=== PATIENT | female | born 1980 | race African-American/Black ===

== ENCOUNTER → 2016-11-04 | Outpatient (CLI) | payer OTHER ==
[~2016-11-04] MED LIST: AUGMENTIN PO; CEPHALEXIN500 M1 PO; CIPRO PO; MOTRIN400 MG PO; NO MEDICATIONS; PYRIDIUM PO; VICODIN 5/1 TAB 5/50 PO; VICODIN 5/500 T1 TAB PO
--- NOTE | ~2016-11-04 | MY6 ---
[facility] A Service of [facility] & [facility] RADIOLOGY TEXT RESULTS PATIENT: MADDY RODRIGUEZ LOCATION: [facility] : 78 UNIT #: [id number] AGE: [address]: Lotus Cloud MD SEX: F ORDER DR: [id number] [facility] [address] [place], [place] [address] [id number] O MR#: [id number] Acc #: [id number] NAME: MADDY RODRIGUEZ : 1980 SEX: F STUDY DATE/TIME: 11/04/2016 8:51 UNIT: [facility] ROOM: STUDY DESCRIPTION: MY Mammogram Dx Dig [place] Attending Physician: Lotus Cloud M.D. Referring Physician: Lotus Cloud M.D. Ordering Physician: Lotus Cloud M.D. Primary Care Physician: Lotus Cloud M.D. MEDICAL IMAGING REPORT This report is preliminary unless electronic signature is present EXAM Bilateral digital diagnostic mammogram with CAD. COMPARISON None. INDICATION 35-year-old female with an upper outer quadrant right breast lump on clinical breast exam. Patient denies feeling a new lump. Patient reports a recent episode of benign-type milky nipple discharge. FINDINGS There are scattered fibroglandular densities. Triangular marker denotes the area palpated by the drivability technician in the upper quadrant of the right breast. In this approximate location, there is a focal asymmetry which does not appear to persist on MLO view but does not persist on CC projection localizing to approximately the 10 o'clock position of middle third of the right breast. This is favored to represent normal fibroglandular tissue, measuring up to approximately 1.7 cm. Separately in the anterior third of the 5 o'clock right breast, there is a focal asymmetry measuring up to approximately 1.4 cm, also favored to represent normal fibroglandular tissue but asymmetric as compared to the contralateral side. There are no suspicious findings in the left breast. Sonographic evaluation was performed to evaluate the palpable concern as well as the focal asymmetries seen in the right breast on mammography today. In the 6 o'clock right breast 2 cm from the nipple, there is a simple cluster of cysts measuring 1.3 cm x 0.8 cm in the radial plane. This may or may not correspond to the focal asymmetry, although it does appear to have a similar shape. In the 10 o'clock right breast 4 cm from the nipple, there is a simple cyst measuring 6 mm x 2 mm x 7 mm. In the [address] [place] [address] [facility] A Service of [facility] RADIOLOGY TEXT RESULTS PATIENT: MADDY RODRIGUEZ LOCATION: [facility] : 78 UNIT #: [id number] AGE: [address]: Lotus Cloud MD SEX: F ORDER DR: o'clock right breast approximately 2 cm from the nipple, there is a possible cluster of cysts but this could potentially represent a complex mass measuring 1.2 cm x 1 cm x 0.4 cm. There is no definite sonographic correlate for the upper outer quadrant right breast focal asymmetry which is favored represent normal breast tissue. IMPRESSION 1. No mammographic evidence of malignancy in the left breast. In the region of the palpable concern, there is a focal asymmetry which is favored to represent normal breast tissue and this is sonographically occult. This is a probably benign finding for which 6-month followup right diagnostic mammography is recommended. 2. The patient has a separate right breast focal asymmetry which may or may not correspond to a simple cluster of cysts in the 6 o'clock right breast. This is also a probably finding for which 6-month followup right diagnostic mammography is recommended, given this is the patient's baseline mammogram. 3. Incidental note of a complex mass in the 10 o'clock right breast 2 cm from the nipple. Ultrasound-guided biopsy is recommended. Findings and recommendations were discussed with the patient upon termination of today's exam. I notified Dr. Lotus Cloud of these recommendations for right breast biopsy. Patients over the age of 40 are entered into a reminder system with target due date for the next mammogram. A result letter will also be sent to the patient. BIRADS: 4 Suspicious abnormality; biopsy should be considered. Dictated by... Juno Jackson M.D. THIS IS AN ELECTRONICALLY VERIFIED REPORT Juno Jackson M.D. at 11/04/2016 5:47 PM Daniela TD: 11/04/2016 16:28 JOB #: [id number] MEDICAL IMAGING REPORT COPY
--- NOTE | ~2016-11-04 | US24 ---
[facility] A Service of [facility] & [facility] RADIOLOGY TEXT RESULTS PATIENT: MADDY RODRIGUEZ LOCATION: [facility] : 78 UNIT #: [id number] AGE: [address]: Lotus Cloud MD SEX: F ORDER DR: [id number] [facility] [address] [place], [place] [address] [id number] O MR#: [id number] Acc #: [id number] NAME: MADDY RODRIGUEZ : 1980 SEX: F STUDY DATE/TIME: 11/04/2016 9:43 UNIT: [facility] ROOM: STUDY DESCRIPTION: US Breast Unilateral Attending Physician: Lotus Cloud M.D. Referring Physician: Lotus Cloud M.D. Ordering Physician: Lotus Cloud M.D. Primary Care Physician: Lotus Cloud M.D. MEDICAL IMAGING REPORT This report is preliminary unless electronic signature is present EXAM Right breast ultrasound. COMPARISON Bilateral diagnostic mammogram on the same date. INDICATION Patient 35-year-old female with a lump palpated in the upper outer quadrant right breast on clinical breast exam. IMPRESSION Please separately dictated report of bilateral diagnostic mammogram on the same date for full sonographic findings of right breast today as well as final impression recommendations. In short, the patient has a complex mass in the 10 o'clock right breast for which ultrasound-guided biopsy is recommended. Patient also has a cluster of cysts in the 6 o'clock right breast which may or may not correspond to a focal asymmetry on this patient's baseline imaging. Patient also has a separate upper outer quadrant sonographically occult focal asymmetry which is thought to represent normal breast tissue. These are probably benign findings which can be safely followed with right diagnostic mammography in 6 months if the patient's biopsy returns a benign result. BIRADS: 4 Suspicious abnormality. Biopsy should be considered. Dictated by... Juno Jackson M.D. THIS IS AN ELECTRONICALLY VERIFIED REPORT Juno Jackson M.D. at 11/06/2016 7:03 PM BLM/gz TD: 11/05/2016 12:56 [facility] A Service of [facility] & [facility] RADIOLOGY TEXT RESULTS PATIENT: MADDY RODRIGUEZ [facility] #: [id number] : 78 UNIT #: [id number] AGE: [address]: Lotus Cloud MD SEX: F ORDER DR: JOB #: [id number] MEDICAL IMAGING REPORT COPY
== END | disposition home or self-care (01) ==
LOC: CMAM 08:29
DX: N63 Unspecified lump in breast (principal); N64.89 Other specified disorders of breast
CPT/HCPCS: 76641; G0204